=== PATIENT | female | born 1940 | race Caucasian/White ===

== ENCOUNTER 2016-12-14 01:31 | Observation (INO) | payer MEDICARE, BC ==
[2016-12-14] VITALS (9 sets, daily range): BP systolic 117–146; BP diastolic 55–73; PULSE 70–73; RESP 16–18; TEMP 96.6–98; O2SAT 96–98
[~2016-12-14] VITALS: Ht 162.6 cm; Wt 54.9 kg
--- NOTE | 2016-12-14 01:47 | PD ---
HPI Chief Complaint: Trauma (Alert) Time Seen by Provider: 01:35 Travel History International Travel<30 days: No Contact w/Intl Traveler<30days: No History of Present Illness HPI This is a patient with a history of lupus as well as artificial heart valve on Coumadin who presents to the emergency department having been found by her having fallen. She doesn't remember what happened and isn't sure if she passed out or fell. She did take Ambien prior to going to bed. Her appreciated a left-sided facial droop when she awoke and he thought she had some poor coordination on the left side so he called the ambulance. He feels normal and denies any headache, neck pain or other injuries. She says she has fallen in the past. EMS called a trauma alert due to neurologic deficit in the setting of a fall. [facility] Past Medical History Narrative Medical lupus mechanical heart valve Social History Tobacco Use: No Allergies-Medications (Allergen,Severity, Reaction): Coded Allergies: UNOBTAINABLE (Unverified , 12/14/16) Review of Systems Except as stated in HPI: all other systems reviewed are Neg Physical Exam Narrative GENERAL: Frail chronically ill-appearing female in no acute distress SKIN: Small hematoma on the left posterior occiput. HEAD: Atraumatic. Normocephalic. EYES: Pupils equal and round. No injection or drainage. ENT: Moist mucous membranes NECK: Trachea midline. No cervical spine tenderness with full painless range of motion of the neck. CARDIOVASCULAR: Regular rate and rhythm. No murmur appreciated. RESPIRATORY: Clear to auscultation. Breath sounds equal bilaterally. GASTROINTESTINAL: Abdomen soft, non-tender, nondistended. MUSCULOSKELETAL: No obvious deformities. NEUROLOGICAL: Awake and alert. Mild left-sided facial droop. Mild dysarthria with no aphasia. No upper or lower extremity drift. No upper extremity ataxia. Visual el intact. PSYCHIATRIC: Appropriate mood and affect; insight and judgment normal. Data Data Last Documented VS Vital Signs Date Time Temp Pulse Resp B/P Pulse Ox O2 Delivery O2 Flow Rate FiO2 12/14/16 01:30 98 12/14/16 01:30 21 Orders I-Stat Profile (12/14/16 01:40) I-Stat Creatinine (12/14/16 01:40) Complete Blood Count With Diff (12/14/16 01:40) Prothrombin Time / Inr (Pt) (12/14/16 01:40) Act Partial Throm Time (Ptt) (12/14/16 01:40) Type And Screen (12/14/16 01:40) Urinalysis - C+S If Indicated (12/14/16 01:40) Ct Brain W/O Iv Contrast(Rout) (12/14/16 01:40) Electrocardiogram (12/14/16 01:40) Iv Access Insert/Monitor (12/14/16 01:40) Ecg Monitoring (12/14/16 01:40) Oximetry (12/14/16 01:40) Oxygen Administration (12/14/16 01:40) Troponin I (12/14/16 01:40) Creatine Kinase (Cpk) (12/14/16 01:40) Admit Order (Ed Use Only) (12/14/16 03:26) Diet Npo (12/14/16 Breakfast) Vital Signs (Adult) MARTIR.Q4H (12/14/16 03:25) Neuro Checks . ORDERED (12/14/16 03:25) Consult Neurology (12/14/16 ) Sodium Chlor 0.9% 1000 Ml Inj (Ns 1000 M (12/14/16 03:30) Other Sales Support Worker / Telemetry MARTIR.Q8H (12/14/16 03:25) Ondansetron Inj (Zofran Inj) (12/14/16 03:30) Labs Laboratory Tests Test 12/14/16 01:34 White Blood Count 5.9 TH/MM3 Red Blood Count 4.21 MIL/MM3 Hemoglobin 11.0 GM/DL Bedside Hemoglobin 11.6 G/DL Hematocrit 33.9 % Bedside Hematocrit 34.0 % Mean Corpuscular Volume 80.5 FL Mean Corpuscular Hemoglobin 26.1 PG Mean Corpuscular Hemoglobin 32.4 % Concent Red Cell Distribution Width 15.2 % Platelet Count 184 TH/MM3 Mean Platelet Volume 9.0 FL Neutrophils (%) (Auto) 56.4 % Lymphocytes (%) (Auto) 28.1 % Monocytes (%) (Auto) 11.5 % Eosinophils (%) (Auto) 3.0 % Basophils (%) (Auto) 1.0 % Neutrophils # (Auto) 3.3 TH/MM3 Lymphocytes # (Auto) 1.7 TH/MM3 Monocytes # (Auto) 0.7 TH/MM3 Eosinophils # (Auto) 0.2 TH/MM3 Basophils # (Auto) 0.1 TH/MM3 CBC Comment DIFF FINAL Differential Comment Prothrombin Time 22.1 SEC Prothromb Time International 1.9 RATIO Ratio Activated Partial 31.0 SEC Thromboplast Time Bedside Sodium 142 MMOL/L Bedside Potassium 3.7 MMOL/L Bedside Chloride 102 MMOL/L Bedside Blood Urea Nitrogen 26 MG/DL Bedside Creatinine 0.7 MG/DL Bedside Glucose 104 MG/DL Total Creatine Kinase 131 U/L Troponin I 0.02 NG/ML Blood Type A POSITIVE Antibody Screen NEGATIVE MDM Medical Screen Exam Complete: Yes Emergency Medical Condition: Yes Interpretation(s) EKG: Ventricular pacing Mild anemia Electrolytes are reassuring Troponin is normal INR is 1.9 Last [address] 12/14/16 0140 Signed Impressions: Service Date/Time: Wednesday, December 14, 2016 01:34 - CONCLUSION: Unremarkable study. Saul De La O MD Differential Diagnosis Intracranial hemorrhage, ischemic stroke, TIA, arrhythmia, electrolyte abnormality Narrative Course This is a patient who has a history of a mechanical valve on Coumadin as well as lupus who presents to the emergency department having been found on the floor by her having fallen with a possible neurologic deficit. Patient was brought in as a trauma alert given she is on Coumadin and had a fall. In the trauma bay I didn't appreciate a neurologic deficit with the exception of some mild dysarthria which may be attributed to her Ambien. She was placed on a monitor and an IV was established. Labs are obtained which were reassuring. Patient was transported to CT scan which was negative. Her INR was found to be 1.9 so if the patient did have a small stroke she would not be a TPA candidate. I think it's reasonable given the patient has a mechanical valve and is high risk for stroke to admit her overnight to be seen by neurology and allow her to clear from Ambien in order to complete a more precise neurologic exam. Trauma Alert - Level Two Trauma Alert Level Two: Full trauma team activate, Patient evaluated, Trauma surgeon called (I did discuss case with over the phone. Given the case is more of a neurologic emergency we agreed that he did not need to come in to assess this patient further.) Physician Communication Discussed with Dr. Cruz and Dr. Mooney Diagnosis Diagnosis: Primary Impression: Dysarthria Admitting Physician Requests: Observation Mindy Palmer MD Dec 14, 2016 01:47
[2016-12-14 01:54] LABS: AUTOMATED NEUTROPHIL # 3.3 TH/MM3 (1.8-7.7); BASOPHIL # 0.1 TH/MM3 (0-0.2); EOSINOPHIL # 0.2 TH/MM3 (0-0.4); HEMATOCRIT 33.9 % (35.0-46.0); HEMO FLAGS DIFF FINAL; LYMPH % 28.1 % (9.0-44.0); LYMPHOCYTE # 1.7 TH/MM3 (1.0-4.8); MEAN CELL VOLUME 80.5 FL (80.0-100.0); MEAN CORPUSCULAR HEMOGLOBIN 26.1 PG (27.0-34.0); MEAN CORPUSCULAR HGB CONC 32.4 % (32.0-36.0); MONO % 11.5 % (0.0-8.0); NEUT % 56.4 % (16.0-70.0); PLATELET COUNT 184 TH/MM3 (150-450); RED BLOOD COUNT 4.21 MIL/MM3 (4.00-5.30); RED CELL DISTRIBUTION WIDTH 15.2 % (11.6-17.2); WHITE BLOOD COUNT 5.9 TH/MM3 (4.0-11.0)
[2016-12-14 01:58] LABS: I-STAT POTASSIUM 3.7 MMOL/L (3.5-4.9)
[2016-12-14 02:11] LABS: INTERNATIONAL NORMALIZED RATIO 1.9 RATIO; PROTHROMBIN TIME - PATIENT 22.1 SEC (9.8-11.6)
--- NOTE | 2016-12-14 02:33 | RADRPT ---
EXAM DATE/TIME: 12/14/2016 01:34 [facility] COMPARISON: No previous studies available for comparison. INDICATIONS : Trauma alert, fell from a standing position. RADIATION DOSE: 56.35 CTDIvol (mGy) MEDICAL HISTORY : unknown SURGICAL HISTORY : unknown ENCOUNTER: Initial ACUITY: 1 day PAIN SCALE: 0/10 LOCATION: cranial TECHNIQUE: Multiple contiguous axial images were obtained of the head. Using automated exposure control and adj ustment of the mA and/or kV according to patient size, radiation dose was kept as low as reasonably a chievable to obtain optimal diagnostic quality images. FINDINGS: There is no evidence for intracranial hemorrhage, mass effect, mass lesions, edema, or extra-axial fl uid collections. The visualized bony structures appear intact. The ventricles are normal size for t he patient's age. There are no signs of acute infarction for technique. There is prominent foramen m agnum cisterna magna. CONCLUSION: Unremarkable study. Saul De La O MD on December 14, 2016 at 2:30 Board Certified Radiologist. This report was verified electronically.
[2016-12-14] MEDS: SODIUM CHLOR 0.9% 1000 ML INJ 1,000 ML IV SCH ×2 (03:30→13:30)
[2016-12-14] MEDS ORDERED: ONDANSETRON HCL 4 MG/2 ML VIAL IV PUSH PRN (03:30)
--- NOTE | 2016-12-14 11:31 | HHI.HP ---
[facility] Service [facility] Primary Care Physician Kamini Pinon MD Admission Diagnosis possible stroke Diagnoses: Chief Complaint: fall, stroke alert Travel History International Travel<30 Days: No Contact w/Intl Traveler <30 Da: No History of Present Illness 76-year-old female with history of lupus, fibromyalgia, mechanical valve on Coumadin, pacer, presents as a stroke alert after a fall, found down on the floor by her with questionable left facial droop, dysarthria, and left sided weakness. The patient cannot recall how she ended up on the floor. Denies remembering any headache, lightheadedness, dizziness, visual changes, unilateral numbness/weakness, chest pain, palpitations, shortness of breath, or abdominal complaints prior to the fall. No recent fevers/chills, cough, or urinary complaints. The reports he heard their dog barking shortly after the patient went to the bathroom, and arrived to find the patient on the floor, awake, alert, but slightly drowsy with possible slurred speech and left facial droop. The patient denies hitting her head or any loss of consciousness. The reports she did take her Ambien prior to this which may explain the drowsiness and weakness. The patient was not able to get off the floor however does have fibromyalgia with generalized weakness at baseline. The carried her back to bed and called 911 as he was concerned for stroke. Since her arrival, the patient and her believe the left facial droop and weakness has improved. She denies any new medical complaints at this time. Review of Systems Except as stated in HPI: all other systems reviewed are Neg Past Family Social History Past Medical History Lupus Fibromyalgia Mechanical Valve on Coumadin Endometriosis Past Surgical History Mitral Valve Replacement with Mechanical Valve in 2004 Pacer placement in 2004 ASD repaired in her 20s Multiple abdominal surgeries for endometriosis Left hip surgery Reported Medications Asked RN to update med rec, do not have current list of meds at this time Allergies: Coded Allergies: UNOBTAINABLE (Unverified , 12/14/16) Active Ordered Medications Current Medications Medications (Trade) Dose Ordered Sig/Aramis Route Start Time Stop Time Status Last Admin (NS 1000 ml Inj) 1,000 ml @ 100 mls/hr Q10H IV 12/14/16 03:30 (Zofran Inj) 4 mg Q8HR PRN IV PUSH 12/14/16 03:30 Family History Family hx significant for heart disease and cancers Aunt with Alzheimer's Social History Denies any tobacco, alcohol, or illicit drug use. Physical Exam Vital Signs Vital Signs Date Time Temp Pulse Resp B/P Pulse Ox O2 Delivery O2 Flow Rate FiO2 12/14/16 08:55 72 12/14/16 08:00 96.6 72 18 146/68 96 12/14/16 06:52 73 12/14/16 05:15 98.0 70 18 123/73 97 12/14/16 01:30 98 12/14/16 01:30 98 21 Physical Exam GENERAL: Well-nourished, well-developed elderly female patient in [facility]. SKIN: Warm and dry. No rash. HEAD: Normocephalic. Atraumatic. EYES: Pupils equal and round. No scleral icterus. No injection or drainage. ENT: No nasal bleeding or discharge. Mucous membranes pink and moist. NECK: Supple. Trachea midline. CARDIOVASCULAR: Regular rate and rhythm. S1, S2 noted. Mechanical murmur appreciated. RESPIRATORY: No accessory muscle use. Clear to auscultation. Breath sounds equal bilaterally. GASTROINTESTINAL: Abdomen soft, non-tender, nondistended. Normoactive bowel sounds x4. MUSCULOSKELETAL: No obvious deformities. Extremities without clubbing, cyanosis , or edema. NEUROLOGICAL: Awake and alert. No obvious cranial nerve deficits. Motor grossly within normal limits. 5/5 muscle strength in bilateral upper and lower extremities. Normal speech. Slight left facial droop. PSYCHIATRIC: Appropriate mood and affect; insight and judgment normal. Laboratory Laboratory Tests Test 12/14/16 01:34 White Blood Count 5.9 Red Blood Count 4.21 Hemoglobin 11.0 Bedside Hemoglobin 11.6 Hematocrit 33.9 Bedside Hematocrit 34.0 Mean Corpuscular Volume 80.5 Mean Corpuscular Hemoglobin 26.1 Mean Corpuscular Hemoglobin 32.4 Concent Red Cell Distribution Width 15.2 Platelet Count 184 Mean Platelet Volume 9.0 Neutrophils (%) (Auto) 56.4 Lymphocytes (%) (Auto) 28.1 Monocytes (%) (Auto) 11.5 Eosinophils (%) (Auto) 3.0 Basophils (%) (Auto) 1.0 Neutrophils # (Auto) 3.3 Lymphocytes # (Auto) 1.7 Monocytes # (Auto) 0.7 Eosinophils # (Auto) 0.2 Basophils # (Auto) 0.1 CBC Comment DIFF FINAL Differential Comment Prothrombin Time 22.1 Prothromb Time International 1.9 Ratio Activated Partial 31.0 Thromboplast Time Bedside Sodium 142 Bedside Potassium 3.7 Bedside Chloride 102 Bedside Blood Urea Nitrogen 26 Bedside Creatinine 0.7 Bedside Glucose 104 Total Creatine Kinase 131 Troponin I 0.02 Blood Type A POSITIVE Antibody Screen NEGATIVE Result Diagram: 12/14/16133 Imaging Last Impressions Head CT 12/14/16 0140 Signed Impressions: Service Date/Time: Wednesday, December 14, 2016 01:34 - CONCLUSION: Unremarkable study. Saul De La O MD Assessment and Plan Assessment and Plan 76-year-old female with hx of mechanical valve on Coumadin, lupus, fibromyalgia , pacer, presents as a stroke alert after a fall, found down on the floor by her with questionable facial droop, dysarthria, and left sided weakness. Stroke Alert: suspected CVA with subtherapeutic INR and mechanical valve; patient with neurological deficit- slight left sided facial droop and weakness on exam Head CT images reviewed, unremarkable Unable to obtain MRI due to pacer/valve Check orthostatics Check echocardiogram Check carotid U/S Rule out ACS with serial cardiac enzymes and EKGs Patient is having pacer interrogated as outpatient in 1 week Neuro checks, PT/OT/ST, monitor on telemetry Neurology consulted, appreciate recommendations, continue Coumadin until INR >2.5 (Prefer INR closer to 3.0) Start daily aspirin 81mg Check lipid profile in the am Mechanical Valve: on Coumadin, current INR 1.9 continue Coumadin, goal INR 2.5-3.5 give full strength Lovenox injections until INR > 2.5 patient takes Coumadin 6mg daily except 7.5mg on Saturdays will give Coumadin 7.5mg daily for now monitor daily INR Fibromyalgia/Lupus: chronic, continue home meds once med rec updated DVT prophylaxis: On Coumadin and Lovenox Written by Alicia Meeks, acting as scribe for Dr. Jonas on 12/14/16 at 11:34. All or portions of this note were transcribed by scribshalini AlvaAlicia Constantino, PA. I , Dr. Deni Jonas personally performed the history, physical exam, and medical decision making; and confirmed the accuracy of the information in the transcribed note. Authenticated by Dr. Deni Jonas on 12/14/16 at 17:52. Discussed Condition With Patient, Patient's , Dr. Gaona, RN Physician Certification 2 Midnight Certification Type: Admission for Inpatient Services Order for Inpatient Services The services are ordered in accordance with Medicare regulations or non- Medicare payer requirements, as applicable. In the case of services not specified as inpatient-only, they are appropriately provided as inpatient services in accordance with the 2-midnight benchmark. Estimated LOS (days): 3 days is the estimated time the patient will need to remain in the hospital, assuming treatment plan goals are met and no additional complications. Post-Hospital Plan: Not yet determined Alicia Meeks PA-C Dec 14, 2016 11:31 am Kelsey Jonas DO Dec 14, 2016 5:52 pm
[2016-12-14] MEDS: ENOXAPARIN SODIUM 60 MG/0.6 ML SYRINGE SQ SCH (12:46)
[2016-12-14] MEDS ORDERED: ASPIRIN EC 81 MG TABEC PO ONE (13:00)
[2016-12-14 13:20] LABS: CREATINE KINASE 177 U/L (26-192)
[2016-12-14 13:32] LABS: CKMB 2.1 NG/ML (0.5-3.6)
--- NOTE | 2016-12-14 13:43 | EKG ---
Date Performed: 12/14/2016 Time Performed: 02:15:12 PTAGE: 89 years EKG: ELECTRONIC VENTRICULAR PACEMAKER ABNORMAL RHYTHM ECG NO PREVIOUS TRACING DOCTOR: Mihir Guillaume Interpretating Date/Time 12/14/2016 13:38:18
--- NOTE | 2016-12-14 14:43 | EC ---
Study Study Date:12/14/2016 STUDY CONCLUSIONS SUMMARY - Left ventricle: The cavity size was normal. Wall thickness was normal. Systolic function was normal. The estimated ejection fraction was in the range of 55% to 65%. Wall motion was normal; there were no regional wall motion abnormalities. - Aortic valve: Valve area: 2.24cm^2(VTI). Valve area: 2.39cm^2 (Vmax). - Mitral valve: A mechanical prosthesis was present. Mild regurgitation. Valve area by pressure half-time: 2.27cm^2. Valve area by continuity equation (using LVOT flow): 3.41cm^2. - Tricuspid valve: Moderate-severe regurgitation. - Pulmonary arteries: PA peak pressure: 36mm Hg (S). If LV function is below 40, please consider prescribing an ACEI or ARB or document rationale for non-use. PROCEDURE DATA STUDY STATUS: Elective. Procedure: Transthoracic echocardiography. Image quality was good. Scanning was performed from the parasternal, apical, and subcostal acoustic windows. Study completion: The patient tolerated the procedure well. Transthoracic echocardiography. M-mode, complete 2D, complete spectral Doppler, and color Doppler. Height: Height: 64in. Weight: Weight: 128.7lb. Body mass index: BMI: 22.1kg/m^2. Body surface area: BSA: 1.62m^2. Patient status: Inpatient. CARDIAC ANATOMY LEFT VENTRICLE: The cavity size was normal. Wall thickness was normal. Systolic function was normal. The estimated ejection fraction was in the range of 55% to 65%. Wall motion was normal; there were no regional wall motion abnormalities. AORTIC VALVE: Trileaflet; normal thickness leaflets. Doppler: Transvalvular velocity was within the normal range. There was no stenosis. No regurgitation. Valve area: 2.24cm^2(VTI). Indexed valve area: 1.38cm^2/m^2 (VTI). Valve area: 2.39cm^2 (Vmax). Indexed valve area: 1.48cm^2/m^2 (Vmax). Mean gradient: 9mm Hg (S). Peak gradient: 25mm Hg (S). AORTA: Aortic root: The aortic root was normal in size. MITRAL VALVE: A mechanical prosthesis was present. Doppler: Transvalvular velocity was within the normal range. There was no evidence for stenosis. Mild regurgitation. Valve area by pressure half-time: 2.27cm^2. Indexed valve area by pressure half-time: 1.4cm^2/m^2. Valve area by continuity equation (using LVOT flow): 3.41cm^2. Indexed valve area by continuity equation (using LVOT flow): 2.1cm^2/m^2. Mean gradient: 3mm Hg (D). Peak gradient: 10mm Hg (D). LEFT ATRIUM: The atrium was normal in size. RIGHT VENTRICLE: The cavity size was normal. Wall thickness was normal. PULMONIC VALVE: Doppler: Transvalvular velocity was within the normal range. There was no evidence for stenosis. No regurgitation. TRICUSPID VALVE: Structurally normal valve. Doppler: Transvalvular velocity was within the normal range. Moderate-severe regurgitation. Peak gradient: 32mm Hg (D). PULMONARY ARTERY: The main pulmonary artery was normal-sized. Systolic pressure was within the normal range. RIGHT ATRIUM: The atrium was normal in size. PERICARDIUM: There was no pericardial effusion. SYSTEMIC VEINS: Inferior vena cava: The vessel was normal in size. Patient weight: 128.7lb _Ejection fraction:_ 65-75% _Fractional shortening:_ 32% up to 5Kg 5-11.5Kg 11.6-22.9Kg 23-45Kg 45-57Kg Aortic Root 7-13 <17 13-22 17-27 17-27 LA diam 6-13 <23 24-38 33-47 37-40 RVID 10-17 7-15 7-15 7-18 8-17 LVIDd 12-22 <32 24-38 33-47 37-40 LVPW 2-4 3-6 5-7 6-8 7-8 IVS 2-4 3-6 5-7 6-8 7-8 BASIC MEASUREMENTS ADULT NORMAL Left ventricle LV internal dimension, ED, chordal 46.9 mm 43-52 level, PLAX LV internal dimension, ES, chordal 31.3 mm 23-38 level, PLAX Fractional shortening, chordal level, 33 % >29 PLAX LV posterior wall thickness, ED 12.2 mm IVS/LVPW ratio, ED 0.99 <1.3 Volume, ED, MOD, 1-plane 50 ml Volume, ES, MOD, 1-plane 21 ml Ejection fraction, MOD, 1-plane 60 % Stroke volume, MOD, 1-plane 29 ml Volume index, ED, MOD, 1-plane 31 ml/m^2 Volume index, ES, MOD, 1-plane 13 ml/m^2 Stroke index, MOD, 1-plane 17.9 ml/m^2 Ventricular septum Septal thickness, ED 12.1 mm Aortic valve Leaflet separation *14 mm 15-26 Right ventricle RV internal dimension, ED, PLAX 28.3 mm 19-38 BASIC MEASUREMENTS ADULT NORMAL Aortic valve Leaflet separation *14 mm 15-26 Aorta Root diameter, ED 28 mm 20-37 Left atrium Anterior-posterior dimension, ES 37 mm 19-40 Anterior-posterior dimension index, ES *2.28 cm/m^2 <2.2 LA/aortic root ratio 1.32 DOPPLER MEASUREMENTS ADULT NORMAL Main pulmonary artery Pressure, S *36 mm Hg =30 Aortic valve Peak velocity, S 252 cm/s Mean velocity, S 132 cm/s VTI, S 31 cm Mean gradient, S 9 mm Hg Peak gradient, S 25 mm Hg Valve area, VTI 2.24 cm^2 Valve area index, VTI 1.38 cm^2/m^2 Valve area, Vmax 2.39 cm^2 Valve area index, Vmax 1.48 cm^2/m^2 Regurgitant velocity, ED 330 cm/s Regurgitant deceleration 2060 cm/s^2 Regurgitant pressure half-time 470 ms Regurgitant gradient, ED 44 mm Hg Mitral valve Mean velocity, D 82.8 cm/s Pressure half-time 97 ms Mean gradient, D 3 mm Hg Peak gradient, D 10 mm Hg Valve area, pressure half-time 2.27 cm^2 Valve area index, pressure half-time 1.4 cm^2/m^2 Valve area, LVOT continuity 3.41 cm^2 Valve area index, LVOT continuity 2.1 cm^2/m^2 Tricuspid valve Peak gradient, D 32 mm Hg Maximal inflow velocity 285 cm/s Regurgitant peak velocity 251 cm/s Peak RV-RA gradient, S 25 mm Hg Maximal regurgitant velocity 251 cm/s Systemic veins Estimated CVP 10 mm Hg Right ventricle RV pressure, S *39 mm Hg <30 Pulmonic valve Peak velocity, S 82.8 cm/s Acceleration time 444 ms LEGEND: Mean values are shown as u=mean value. Asterisk (*) thompson values outside specified normal range. Prepared and signed by Nik Pirce [id number]
--- NOTE | 2016-12-14 15:37 | RADRPT ---
EXAM DATE/TIME: 12/14/2016 14:18 [facility] COMPARISON: No previous studies available for comparison. INDICATIONS : Syncope. MEDICAL HISTORY : Blood transfusion. Syncope. SURGICAL HISTORY : None. ENCOUNTER: Initial ACUITY: 1 day PAIN SCORE: 4/10 LOCATION: Bilateral neck PEAK SYSTOLIC VELOCITIES (cm/sec): ICA/CCA RATIO: Right: 1.5 Left: 1.1 ICA: Right: 98 Left: 83 CCA: Right: 63 Left: 76 ECA: Right: 71 Left: 88 VERTEBRAL: Right: 39 antegrade Left: 52 antegrade Elevated flow velocities and ICA/CCA ratios have been found to correlate with increased degrees of vessel stenosis, calculated as percentage of diameter relative to a normal segment of distal ICA/CCA FINDINGS: RIGHT CAROTID: No significant stenosis is visualized. The waveforms are within normal limits. LEFT CAROTID: No significant stenosis is visualized. The waveforms are within normal limits. VERTEBRAL ARTERIES: Antegrade flow is seen in both vertebral arteries. MISCELLANEOUS: None. CONCLUSION: 1. No hemodynamically significant carotid artery stenosis. Tim Wheat MD on December 14, 2016 at 15:34 Board Certified Radiologist. This report was verified electronically.
[2016-12-14] MEDS ORDERED: WARFARIN SOD 7.5 MG TAB PO SCH (16:00)
--- NOTE | 2016-12-14 16:57 | MB ---
cc: MARCIE KIRKPATRICK M.D. DATE OF CONSULTATION 12/14/16 1942 REASON FOR CONSULTATION Syncope, possible stroke HISTORY OF PRESENT ILLNESS This is a 76-year-old woman with history of lupus and a mechanical mitral valve on anticoagulation who presented sometime after midnight. The dog woke her up that the patient had fallen down. She cannot remember if she felt dizzy or not, but not sure what happened. She did take an Ambien prior to going to bed, but that is not unusual for her. There is some left-sided facial droop noted by her and staff. She denies any headache, chest pain, shortness of breath. She has some left shoulder pain which is from an old injury from a fall from a horse.. PAST MEDICAL HISTORY Lupus and a mechanical mitral valve SOCIAL HISTORY . Does not smoke or drink ALLERGIES Denies MEDICATIONS Coumadin and please refer to her MAR. PHYSICAL EXAMINATION VITAL SIGNS: On exam temperature 96.6, pulse 72, respiratory rate 18. Blood pressure 146/68, satting at 96% room air. NECK: Supple. HEART: Regular. NEUROLOGIC: She is awake, alert. She is oriented and speech is not dysarthric. She does have a left facial mild asymmetry with the left nasolabial fold. Of note, she has had a facelift in the past. Facial sensation is normal. Hearing is normal. Tongue is midline. Motor: She does exhibit a little bit of supply teacher weakness in the left hand, otherwise, the rest of the strength in her upper extremities is normal. There is a mild leg lag. DTRs are symmetrical. Sensory is normal. Toes withdraws bilaterally. Pavbge-ngmi-[id number] no past-pointing. Her gait is withheld at this time until CT. LABORATORY DATA Reviewed. Hemoglobin 11. Platelets are 184,000. Coag panel INR 1.9. Chemistries - glucose 104. IMAGING STUDIES She had a CT of the head on admission that was really unremarkable for any acute findings. IMPRESSION AND PLAN 1. Syncope and left-sided mild weakness, possible stroke. 2. Mechanical mitral valve subtherapeutic. INR likely is the etiology for stroke. Unfortunately, no MRI due to her valve. Recommend restarting her anticoagulation keeping her therapeutic at least a 2.5-3.5 INR. Get a carotid ultrasound, echo. Speech therapy is assessing her now. Have PT as well assess her. SCDs in bed and please restart for anticoagulation as soon as possible. Check a lipid panel and, depending on findings, further recommendations will be made. MD TASHA Carrion/ /11:39 AM /4:47 PM
[2016-12-14 17:46] LABS: CREATINE KINASE 169 U/L (26-192)
[2016-12-14 17:58] LABS: CKMB 1.3 NG/ML (0.5-3.6)
[2016-12-14 18:51] LABS: BLOOD, URINE NEG (NEG); COMMENT (UR) CULT NOT INDICATED; CULTURE IF INDICATED CULT NOT INDICATED; GLUCOSE,URINE NEG (NEG); KETONE, URINE 10 mg/dL (NEG); NITRITE,URINE NEG (NEG); URINE COLOR LIGHT-YELLOW (YELLW/STRAW)
[2016-12-15 00:10] VITALS: BP 121/69; PULSE 70; RESP 17; TEMP 96.8; O2SAT 97
[2016-12-15] MEDS: ENOXAPARIN SODIUM 60 MG/0.6 ML SYRINGE SQ SCH (01:14)
[2016-12-15 04:10] VITALS: BP 140/65; PULSE 71; RESP 17; TEMP 97.1; O2SAT 96
[2016-12-15 05:28] LABS: AUTOMATED NEUTROPHIL # 3.6 TH/MM3 (1.8-7.7); BASOPHIL % 0.9 % (0.0-2.0); EOSINOPHIL # 0.1 TH/MM3 (0-0.4); EOSINOPHIL % 1.6 % (0.0-4.0); HEMATOCRIT 32.9 % (35.0-46.0); HEMO FLAGS DIFF FINAL; LYMPH % 16.2 % (9.0-44.0); LYMPHOCYTE # 0.9 TH/MM3 (1.0-4.8); MEAN CELL VOLUME 79.4 FL (80.0-100.0); MEAN CORPUSCULAR HEMOGLOBIN 26.1 PG (27.0-34.0); MEAN CORPUSCULAR HGB CONC 32.9 % (32.0-36.0); MONO % 14.5 % (0.0-8.0); NEUT % 66.8 % (16.0-70.0); PLATELET COUNT 170 TH/MM3 (150-450); RED BLOOD COUNT 4.14 MIL/MM3 (4.00-5.30); RED CELL DISTRIBUTION WIDTH 15.2 % (11.6-17.2); WHITE BLOOD COUNT 5.4 TH/MM3 (4.0-11.0)
[2016-12-15 05:52] LABS: INTERNATIONAL NORMALIZED RATIO 2.7 RATIO; PROTHROMBIN TIME - PATIENT 31.5 SEC (9.8-11.6)
[2016-12-15 06:13] LABS: ALT (GPT) 24 U/L (10-53); ANION GAP 6 MEQ/L (5-15); AST (GOT) 29 U/L (15-37); BICARBONATE 30.2 MEQ/L (21.0-32.0); BLOOD UREA NITROGEN 10 MG/DL (7-18); CHLORIDE 108 MEQ/L (98-107); GLOMERULAR FILTRATION RATE 96 ML/MIN (>89); MAGNESIUM 1.9 MG/DL (1.5-2.5); POTASSIUM 3.5 MEQ/L (3.5-5.1); SODIUM (NA) 144 MEQ/L (136-145)
[2016-12-15 06:22] LABS: ALKALINE PHOSPHATASE 52 U/L (45-117); HDL CHOLESTEROL 71.3 MG/DL (40.0-60.0); LDL CHOLESTEROL 87 MG/DL (0-99); TOTAL BILIRUBIN ADULT 0.5 MG/DL (0.2-1.0)
[2016-12-15 08:00] VITALS: BP 137/67; PULSE 70; RESP 17; TEMP 97.3; O2SAT 97
[2016-12-15] MEDS: SODIUM CHLOR 0.9% 1000 ML INJ 1,000 ML IV SCH (08:59)
[2016-12-15] MEDS ORDERED: ASPIRIN EC 81 MG TABEC PO SCH (09:00)
[2016-12-15] MEDS ORDERED: WARF-60 PO (09:11)
[2016-12-15] MEDS ORDERED: WARF4TAB52 PO ×2 (09:11→09:28)
[2016-12-15] MEDS ORDERED: ASPI81TA11 PO (09:11)
[2016-12-15] MEDS ORDERED: COUM7.5T PO (09:11)
--- NOTE | 2016-12-15 09:13 | HHI.PR ---
Subjective Remarks Follow up for suspected CVA. The patient reports feeling much better again today. No noticeable facial droop, lid lag, or slurred speech per patient and . She was able to ambulate with physical therapy today, recommends [facility], patient agrees. No further episodes of unilateral numbness/weakness although does have some LUE weakness at baseline secondary to left shoulder injury. The patient has no other medical complaints at this time. Thoroughly discussed Coumadin dosing, patient normally takes 6mg every day except 7.5mg on Saturdays , instructed to take 7mg today and check INR in the am. Objective Vitals Vital Signs Date Time Temp Pulse Resp B/P Pulse Ox O2 Delivery O2 Flow Rate FiO2 12/15/16 08:00 97.3 70 17 137/67 97 12/15/16 04:10 97.1 71 17 140/65 96 12/15/16 00:10 96.8 70 17 121/69 97 12/14/16 20:10 97.7 70 17 122/55 97 12/14/16 19:28 70 12/14/16 16:00 96.7 70 16 137/61 96 12/14/16 12:00 97.1 70 16 117/62 96 122/59 125/63 I/O 12/14/16 12/14/16 12/14/16 12/15/16 12/15/16 12/15/16 07:00 15:00 23:00 07:00 15:00 23:00 Intake Total 0 ml 240 ml 120 ml 60 ml Output Total 650 ml Balance 0 ml -410 ml 120 ml 60 ml Intake Oral 0 ml 240 ml 120 ml 60 ml Output Urine Total 650 ml # Voids 1 7 3 4 # Bowel Movements 0 0 0 Result Diagram: 12/15/16 0430 12/15/16 0430 Imaging Last Impressions Head CT 12/14/16 0140 Signed Impressions: Service Date/Time: Wednesday, December 14, 2016 01:34 - CONCLUSION: Unremarkable study. KYeny De La O MD Carotid Artery Ultrasound 12/14/16 0000 Signed Impressions: Service Date/Time: Wednesday, December 14, 2016 14:18 - CONCLUSION: 1. No hemodynamically significant carotid artery stenosis. Tim Wheat MD Objective Remarks GENERAL: Well-nourished, well-developed elderly female patient in [facility]. SKIN: Warm and dry. No rash. HEENT: Normocephalic. Atraumatic.Pupils equal and round. No scleral icterus. No injection or drainage. Mucous membranes pink and moist. NECK: Supple. Trachea midline. CARDIOVASCULAR: Regular rate and rhythm. S1, S2 noted. Mechanical murmur appreciated. RESPIRATORY: No accessory muscle use. Clear to auscultation. Breath sounds equal bilaterally. GASTROINTESTINAL: Abdomen soft, non-tender, nondistended. Normoactive bowel sounds x4. MUSCULOSKELETAL: No obvious deformities. Extremities without clubbing, cyanosis , or edema. NEUROLOGICAL: Awake and alert. No obvious cranial nerve deficits. Motor grossly within normal limits. 5/5 muscle strength in bilateral lower extremities and RUE, however very slight weakness 4.5/5 strength of LUE. Normal speech. No noticeable facial droop or lid lag today. PSYCHIATRIC: Appropriate mood and affect; insight and judgment normal. Medications and IVs Current Medications Medications (Trade) Dose Ordered Sig/Aramis Route Start Time Stop Time Status Last Admin (NS 1000 ml Inj) 1,000 ml @ 100 mls/hr Q10H IV 12/14/16 03:30 12/14/16 13:30 (Zofran Inj) 4 mg Q8HR PRN IV PUSH 12/14/16 03:30 (Coumadin) 7.5 mg DAILY@16 PO 12/14/16 16:00 12/14/16 16:43 (Lovenox Inj) 60 mg Q12H SQ 12/14/16 13:00 12/15/16 01:14 (Ecotrin Ec) 81 mg DAILY PO 12/15/16 09:00 12/15/16 08:57 Urinary Catheter: No Vascular Central Line Catheter: No A/P Assessment and Plan 76-year-old female with hx of mechanical valve on Coumadin, lupus, fibromyalgia , pacer, presents as a stroke alert after a fall, found down on the floor by her with questionable facial droop, dysarthria, and left sided weakness. Stroke Alert: suspected CVA with subtherapeutic INR and mechanical valve; patient with neurological deficit- slight left sided facial droop and weakness on exam Head CT images reviewed, unremarkable Unable to obtain MRI due to pacer/valve Orthostatics negative Echocardiogram with EF 55-65%, mehcanical mitral valve with mild MR, moderate -severe TR Carotid U/S unremarkable, no significant stenosis Ruled out ACS with negative serial cardiac enzymes and EKGs without acute ischemic changes Patient is having pacer interrogated as outpatient in 1 week Neuro checks, PT/OT/ST, monitor on telemetry Neurology consulted, appreciate recommendations, continue Coumadin until INR >2.5 (Prefer INR closer to 3.0) Started daily aspirin 81mg Lipid profile wnl with Cholesterol 166, LDL 87, HDL 71 PT recommends [facility] PT, case management to arrange prior to discharge Mechanical Valve: on Coumadin, current INR 1.9 continue Coumadin, goal INR 2.5-3.5 give full strength Lovenox injections until INR > 2.5 patient takes Coumadin 6mg daily except 7.5mg on Saturdays given Coumadin 7.5mg on 12/14 INR 2.7 today, therapeutic Recommended patient take 7mg today, recheck INR in the am after discharge Fibromyalgia/Lupus: chronic, continue home meds once med rec updated DVT prophylaxis: On Coumadin and Lovenox Written by Alicia Meeks, acting as scribe for Dr. Jonas on 12/15/16 at 08:40. All or portions of this note were transcribed by scrTRAM Bryant. I , Dr. Deni Jonas personally performed the history, physical exam, and medical decision making; and confirmed the accuracy of the information in the transcribed note. Authenticated by Dr. Deni Jonas on 12/15/16 at 23:08. Discharge Planning Discharge patient to home with [facility] PT Condition on discharge: Improved Heart Healthy Diet as tolerated Ad Roberta activity Rx written: aspirin 81mg daily, Coumadin 1mg tab today (in addition to her 6mg tab daily) Follow-up with primary care physician within 1 week Alicia Meeks PA-C Dec 15, 2016 09:13 Kelsey Jonas DO Dec 15, 2016 23:08
--- NOTE | 2016-12-15 09:13 | HHI.DCPOC ---
Discharge Care Plan Diagnosis: (1) CVA (cerebral vascular accident) (2) Subtherapeutic anticoagulation Goals to Promote Your Health * To prevent worsening of your condition and complications * To maintain your health at the optimal level Directions to Meet Your Goals Take your medications as prescribed Follow your dietary instruction Follow activity as directed Keep your appointments as scheduled Take your immunizations and boosters as scheduled If your symptoms worsen call your PCP, if no PCP go to Urgent Care Center or Emergency Room Smoking is Dangerous to Your Health. Avoid second hand smoke Call the 24-hour hour crisis hotline for domestic abuse at Alicia Meeks PA-C Dec 15, 2016 9:13 am
--- NOTE | 2016-12-15 09:16 | HHI.FF ---
Face to Face Verification Diagnosis: (1) CVA (cerebral vascular accident) (2) Dysarthria (3) Subtherapeutic anticoagulation (4) Anticoagulated on Coumadin (5) History of mitral valve replacement with mechanical valve Physical Therapy Order: Evaluate and Treat, Improve ambulation, Strength and gait training Home Health Nursing Order: Medical education Nursing assessment with vital signs I have seen patient Zuri Rodriguez on 12/15/16. My clinical findings support the need for the requested home health care services because: Deconditioned w/ increased weakness Limited ability to care for self High risk of falls I certify that my clinical findings support that this patient is homebound because: Unsteady gait/balance Unsafe to leave home unassisted Alicia Meeks PA-C Dec 15, 2016 09:16
--- NOTE | 2016-12-15 14:39 | EKG ---
Date Performed: 12/14/2016 Time Performed: 18:18:05 PTAGE: 76 years EKG: ELECTRONIC VENTRICULAR PACEMAKER Compared to prior tracing no significant change ABNORMAL R HYTHM ECG PREVIOUS TRACING : 12/14/2016 11.44 DOCTOR: Beba Meraz Interpretating Date/Time 12/15/2016 14:37:32
--- NOTE | 2016-12-15 14:40 | EKG ---
Date Performed: 12/14/2016 Time Performed: 11:44:49 PTAGE: 76 years EKG: ELECTRONIC VENTRICULAR PACEMAKER Compared to prior tracing no significant change ABNORMAL R HYTHM ECG PREVIOUS TRACING : 12/14/2016 02.15 DOCTOR: Beba Meraz Interpretating Date/Time 12/15/2016 14:37:45
== END 2016-12-15 12:26 | disposition home health service (06) ==
LOC: NEPI 01:31 → NEDA 03:27 → EDBD 03:27 → N06A 05:18
PROVIDERS: ADMIT Hospitalist; ATTEND Hospitalist
DX: R29.810 Facial weakness (principal); R55 Syncope and collapse; R47.1 Dysarthria and anarthria; R53.1 Weakness; M79.7 Fibromyalgia; M32.9 Systemic lupus erythematosus, unspecified; Z95.2 Presence of prosthetic heart valve; Z95.0 Presence of cardiac pacemaker; Z79.01 Long term (current) use of anticoagulants
CPT/HCPCS: 70450; 80053; 80061; 81001; 82435; 82550; 82552; 82565; 82947; 83735; 84132; 84295; 84443; 84484; 84520; 85025; 85610; 85730; 86850; 86900; 86901; 92526; 92610; 93005; 93306; 93880; 97162; 97167; 99285; G0378; G0390; G8987; G8988; G8996; G8997; G8998; J1650; J7030; 76937; 99291